=== PATIENT | male | born 1950 | race Caucasian/White ===

== ENCOUNTER → 2020-07-08 14:02 | Outpatient (CLI) | payer MEDICARE, SELFPAY ==
[2020-07-08] MEDS: COVID-19 VACC, Ad26(JANSSEN)/PF 0.5 ML IM (14:12)
== END ==
PROVIDERS: Visit Provider Internal Medicine
DX: Z23 Encounter for immunization (principal)
CPT/HCPCS: 0031A; 91303

== ENCOUNTER → 2021-10-04 16:32 | Outpatient (CLI) | payer MEDICARE, SELFPAY | PROVIDERS: Visit Provider Physician Assistant | DX: B02.9 Zoster without complications (principal) | CPT/HCPCS: 87070; 87077; 87147; 87186; 87205 ==